=== PATIENT | female | born 1985 ===

== ENCOUNTER 2017-03-07 03:46 | Inpatient (IN) | payer OTHER ==
[2017-03-07] MEDS ORDERED: Sodium Chloride 0.9% 1,000 ML IV ONE (03:57)
[2017-03-07 04:13] LABS: SQUAMOUS EPITHIAL 4 /hpf (0-5); URINE BILIRUBIN NEGATIVE (NEGATIVE); URINE BLOOD NEGATIVE (NEGATIVE); URINE CLARITY Clear (Clear); URINE COLOR Yellow (YELLOW); URINE GLUCOSE (UA) NORMAL (Normal); URINE LEUKOCYTE ESTERASE NEG Leu/uL (Negative); URINE NITRATE NEGATIVE (NEGATIVE); URINE PROTEIN NEGATIVE (NEGATIVE); URINE UROBILINOGEN NORMAL mg/dL (0.2-1.0)
[2017-03-07 04:15] LABS: HEMOGLOBIN 11.9 g/dL (11.0-16.0)
[2017-03-07 04:18] LABS: HCG,QUALITATIVE URINE NEGATIVE (NEGATIVE)
[2017-03-07 04:19] LABS: BASO % 0.6 % (0.0-2.0); EOS % 0.5 % (0.0-4.0); LYMPH # 0.7 K/uL (1.0-4.3); LYMPH % 13.8 % (20.0-40.0); MEAN CELL VOLUME 80.4 fL (81.0-99.0); MEAN CORPUSCULAR HEMOGLOBIN 26.5 pg (27.0-31.0); MONO # 0.4 K/uL (0.0-0.8); MONO % 7.3 % (0.0-10.0); NEUT % 77.8 % (50.0-75.0); NRBC % 0.4 % (0.0-2.0); RBC 4.48 Mil/uL (3.80-5.20); RED CELL DISTRIBUTION WIDTH 16.3 % (11.5-14.5); WHITE BLOOD COUNT 5.1 K/uL (4.8-10.8)
[2017-03-07 04:28] LABS: ALB/GLOB RATIO 1.1 (1.0-2.1); ALBUMIN 4.2 g/dL (3.5-5.0); ALT/SGPT 22 U/L (9-52); AST/SGOT 30 U/L (14-36); BLOOD UREA NITROGEN 12 mg/dL (7-17); CALCIUM 8.9 mg/dl (8.6-10.4); GFR AFRICAN-AMERICAN > 60; GFR NON-AFRICAN AMERICAN > 60; LIPASE 128 U/L (23-300)
[2017-03-07] MEDS ORDERED: Iohexol 350mg/ml 100 ML ONE (04:45)
[2017-03-07] MEDS ORDERED: DiphenhydrAMINE 50 mg/ml Inj IVP STA (05:07)
[2017-03-07] MEDS ORDERED: DiphenhydrAMINE 50 mg/ml Inj ONE (05:13)
--- NOTE | 2017-03-07 06:01 | C.PDOC ---
History Of Present Illness Patient presents to ED c/o nausea/vomiting and diarrhea since tuesday. Since last night she has also been experiencing lower abdominal pain that is constant and nonradiating. She denies fever, dysuria/hematuria, vaginal bleeding/ discharge. Time Seen by Provider: 03/07/17 03:50 Chief Complaint (Nursing): Abdominal Pain History Per: Patient History/Exam Limitations: no limitations Onset/Duration Of Symptoms: Days Current Symptoms Are (Timing): Still Present Severity: Moderate Location Of Pain/Discomfort: RLQ, Suprapubic Quality Of Discomfort: "Pain" Associated Symptoms: Nausea, Vomiting, Diarrhea Past Medical History Reviewed: Historical Data, Nursing Documentation, Vital Signs Vital Signs: Last Vital Signs Temp 98.3 F 03/07/17 03:53 Pulse 91 H 03/07/17 03:53 Resp 18 03/07/17 03:53 BP 119/78 03/07/17 03:53 Pulse Ox 100 03/07/17 06:31 - Medical History PMH: No Chronic Diseases Family History: States: No Known Family Hx - Social History Hx Alcohol Use: No Hx Substance Use: No - Immunization History Hx Tetanus Toxoid Vaccination: No Hx Influenza Vaccination: No Hx Pneumococcal Vaccination: No Review Of Systems Except As Marked, All Systems Reviewed And Found Negative. Constitutional: Negative for: Fever, Chills Cardiovascular: Negative for: Chest Pain Respiratory: Negative for: Shortness of Breath Gastrointestinal: Positive for: Nausea, Vomiting, Abdominal Pain, Diarrhea Genitourinary: Negative for: Dysuria, Hematuria, Vaginal Discharge, Vaginal Bleeding Physical Exam - Physical Exam Appears: Well, Non-toxic, In Acute Distress (in mild to moderate pain ) Oral Mucosa: Moist Cardiovascular: Rhythm Regular Respiratory: Normal Breath Sounds, No Rales, No Rhonchi, No Wheezing Gastrointestinal/Abdominal: Bowel Sounds, Soft, Tenderness (mild suprapubic and RLQ TTP), No Distention, No Guarding, No Rebound Back: Normal Inspection, No CVA Tenderness Neurological/Psych: Oriented x3 ED Course And Treatment - Laboratory Results Result Diagrams: 03/07/17 04:10 03/07/17 04:10 O2 Sat by Pulse Oximetry: 100 (RA) Pulse Ox Interpretation: Normal - CT Scan/US CT ABD/PELVIS Other Rad Studies (CT/US): Read By Radiologist, Radiology Report Reviewed CT/US Interpretation: EXAM: CT Abdomen and Pelvis With Intravenous Contrast. EXAM DATE/TIME: 03/07/2017 4:38 AM. CLINICAL HISTORY: 31 years old, female; Pain; Abdominal pain; Additional info: Rlq/suprapubic pain. TECHNIQUE: Axial computed tomography images of the abdomen and pelvis with intravenous contrast. All CT. scans at this facility use one or more dose reduction techniques, viz. : automated exposure control;. ma/kV adjustment per patient size (including targeted exams where dose is matched to indication; i.e. head); or iterative reconstruction technique. Coronal and sagittal reformatted images were created and reviewed. CONTRAST: 100 mL of [id number] administered intravenously. COMPARISON: No relevant prior studies available. FINDINGS: LOWER THORAX: No infiltrate seen in the lung bases. ABDOMEN: LIVER: Fatty infiltration of the liver. [facility]. [facility]. Final Radiology Report . Name: GOKUL JOYA Age: 31Years F Date: 03/07/2017. SSN: [id number] : 1985. Study: CT ABDOMEN/PELVIS W Requesting Physician : TEMITOPE DALTON. Images: 570. Addl Studies: Provided Clinical History: rlq/suprapubic pain. CONFIDENTIALITY STATEMENT. This transmission is confidential and is intended to be a privileged communication. It is intended only for the use of the addressee. Access to this. message by anyone else is unauthorized. If you are not the intended recipient, any disclosure, copying, distribution or any action taken, or omitted to. be taken in reliance on it is prohibited and may be unlawful. If you received this communication in error, please notify us by telephone, so that return. of this document to us can be arranged. Page 2 of 3. GALLBLADDER AND BILE DUCTS: No CT evidence of acute cholecystitis. No evidence of. significant biliary ductal dilatation. PANCREAS: No CT evidence of acute pancreatitis. SPLEEN: No acute abnormality of the spleen identified. ADRENALS : No acute abnormality of the adrenal glands identified. KIDNEYS AND URETERS: No acute abnormality of the kidneys identified. No evidence of. significant hydrouereteronephrosis. STOMACH AND BOWEL: No acute abnormality of the stomach , small bowel or colon identified. No. evidence of bowel obstruction. APPENDIX : Appendix is seen, in the right anterior pelvis, inferior to the cecum, images 112-123 of. series 3. It is fluid-filled, except for a tiny dot of intraluminal air, and it is at the upper limits of normal in. size, measuring 7 mm in diameter. Its wall enhances. There is no significant adjacent inflammation or. fluid. PELVIS: BLADDER: Mild thickening of the bladder wall. REPRODUCTIVE:No acute abnormality of the reproductive organs is seen. No acute abnormality of. the uterus identified. No evidence of large adnexal masses. ABDOMEN and PELVIS: INTRAPERITONEAL SPACE: Small amount of free fluid in the cul-de-sac. This is most likely. physiologic in nature. No evidence of free air. BONES/JOINTS: No acute fractures or other acute bony abnormality noted. SOFT TISSUES: No acute abnormality of the visualized soft tissues is seen. VASCULATURE: No evidence of abdominal aortic aneurysm. No evidence of periaortic. hemorrhage. LYMPH NODES: No evidence of diffuse lymphadenopathy. [facility]. [facility]. Final Radiology Report [id number]. Name: GOKUL JOYA Age: 31Years F Date: 03/07/2017. SSN: [id number] : 1985. Study: CT ABDOMEN/PELVIS W Requesting Physician: TEMITOPE DALTON. Images: 570. Addl Studies: Provided Clinical History: rlq/suprapubic pain. CONFIDENTIALITY STATEMENT. This transmission is confidential and is intended to be a privileged communication. It is intended only for the use of the addressee. Access to this. message by anyone else is unauthorized. If you are not the intended recipient, any disclosure, copying, distribution or any action taken, or omitted to. be taken in reliance on it is prohibited and may be unlawful. If you received this communication in error, please notify us by telephone, so that return. of this document to us can be arranged. Page 3 of 3. IMPRESSION: - Appendix is fluid- filled and top normal in size. There is no adjacent inflammation. Most likely,. the findings are within normal limits. However, if there is clinical concern for early acute. appendicitis, consider a short term followup pelvic CT, to reassess the appendix. - Mild bladder wall thickening. This is a nonspecific finding, but can be seen with cystitis. Recommend clinical correlation. - Otherwise, no evidence of significant acute process. - See above for remaining findings. Thank you for allowing us to participate in the care of your patient. Dictated and Authenticated by: Gemini Wynne MD. 03/07/2017 6:10 AM Eastern Time ([place] & [place]) Progress Note: Blood work, UA, Upreg ordered and reviewed. Patient given IV NS bolus, IV zofran and IV toradol. On reassessment, patient continued to have abdominal pain. IV morphine and CT scan abd/pelvis ordered. 6:15AM- CT scan shows appendix at upper limits of normal size. Surgery resident spoken with, will come down and evaluate patient Disposition - Disposition Disposition Time: 07:00 Condition: STABLE Forms: [facility] (Uzbek) - Clinical Impression Clinical Impression: Nausea, Vomiting, Diarrhea, Abdominal pain Physician Patient Turnover Patient Signed Over To: Tarik Melendez Handoff Comments: pending surgery eval, reassessment
--- NOTE | 2017-03-07 06:11 | CT ---
EXAM: CT Abdomen and Pelvis With Intravenous Contrast EXAM DATE/TIME: 03/07/2017 4:38 AM CLINICAL HISTORY: 31 years old, female; Pain; Abdominal pain; Additional info: Rlq/suprapubic pain TECHNIQUE: Axial computed tomography images of the abdomen and pelvis with intravenous contrast. All CT scans at this facility use one or more dose reduction techniques, viz.: automated exposure control; ma/kV adjustment per patient size (including targeted exams where dose is matched to indication; i.e. head); or iterative reconstruction technique. Coronal and sagittal reformatted images were created and reviewed. CONTRAST: 100 mL of [id number] administered intravenously. COMPARISON: No relevant prior studies available. FINDINGS: LOWER THORAX: No infiltrate seen in the lung bases. ABDOMEN: LIVER: Fatty infiltration of the liver. GALLBLADDER AND BILE DUCTS: No CT evidence of acute cholecystitis. No evidence of significant biliary ductal dilatation. PANCREAS: No CT evidence of acute pancreatitis. SPLEEN: No acute abnormality of the spleen identified. ADRENALS: No acute abnormality of the adrenal glands identified. KIDNEYS AND URETERS: No acute abnormality of the kidneys identified. No evidence of significant hydrouereteronephrosis. STOMACH AND BOWEL: No acute abnormality of the stomach, small bowel or colon identified. No evidence of bowel obstruction. APPENDIX: Appendix is seen, in the right anterior pelvis, inferior to the cecum, images 112-123 of series 3. It is fluid-filled, except for a tiny dot of intraluminal air, and it is at the upper limits of normal in size, measuring 7 mm in diameter. Its wall enhances. There is no significant adjacent inflammation or fluid. PELVIS: BLADDER: Mild thickening of the bladder wall. REPRODUCTIVE:No acute abnormality of the reproductive organs is seen. No acute abnormality of the uterus identified. No evidence of large adnexal masses. ABDOMEN and PELVIS: INTRAPERITONEAL SPACE: Small amount of free fluid in the cul-de-sac. This is most likely physiologic in nature. No evidence of free air. BONES/JOINTS: No acute fractures or other acute bony abnormality noted. SOFT TISSUES: No acute abnormality of the visualized soft tissues is seen. VASCULATURE: No evidence of abdominal aortic aneurysm. No evidence of periaortic hemorrhage. LYMPH NODES: No evidence of diffuse lymphadenopathy. IMPRESSION: - Appendix is fluid-filled and top normal in size. There is no adjacent inflammation. Most likely, the findings are within normal limits. However, if there is clinical concern for early acute appendicitis, consider a short term followup pelvic CT, to reassess the appendix. - Mild bladder wall thickening. This is a nonspecific finding, but can be seen with cystitis. Recommend clinical correlation. - Otherwise, no evidence of significant acute process. - See above for remaining findings.
[2017-03-07] MEDS ORDERED: Piperacillin/Tazobact 3.375 GM in Sodium Chloride 100 ML IVPB STA (08:16)
[2017-03-07] MEDS ORDERED: Lactated Ringer's 1,000 ML ONE (09:11)
[2017-03-07] MEDS: Lactated Ringer's 1,000 ML IV SCH (09:16)
[2017-03-07 09:17] LABS: INR 1.1
--- NOTE | 2017-03-07 09:18 | RAD ---
HISTORY: preop COMPARISON: No prior. TECHNIQUE: Chest PA and lateral FINDINGS: LUNGS: No active pulmonary disease. PLEURA: No significant pleural effusion identified. No pneumothorax apparent. CARDIOVASCULAR: Normal. OSSEOUS STRUCTURES: No significant abnormalities. VISUALIZED UPPER ABDOMEN: Normal. OTHER FINDINGS: None. IMPRESSION: No active disease.
[2017-03-07] MEDS ORDERED: ceFAZolin IV 1 gm in Dextrose 0 GM/0 ML BAG IVPB ONE (10:45)
[2017-03-07] MEDS ORDERED: Bupivacaine-Epi 0.5%-1:200,000 PF Inj IJ ONE (10:46)
[2017-03-07] MEDS ORDERED: Propofol 10 mg/ml Inj (20 ML) ONE (10:55)
[2017-03-07] MEDS ORDERED: Midazolam 2 MG/2 ML VIAL ONE (10:55)
[2017-03-07] MEDS ORDERED: Rocuronium 10 mg/ml (5 ml) ONE (10:58)
[2017-03-07] MEDS ORDERED: Phenylephrine 10 mg/ml Inj ONE (10:59)
[2017-03-07] MEDS ORDERED: Lactated Ringer's 1,000 ML IV ONE ×2 (11:23→12:45)
[2017-03-07] MEDS ORDERED: Neostigmine Methylsulfate 3mg/3ml Syringe IV ONE (11:37)
--- NOTE | 2017-03-07 12:03 | CP.PCM.CON ---
Past Patient History - Past Social History Smoking Status: Never Smoked - PSYCHIATRIC Hx Substance Use: No - SURGICAL HISTORY Hx Surgeries: Yes Hx Section: Yes (x4) - ANESTHESIA Hx Anesthesia: Yes Hx Anesthesia Reactions: No Hx Malignant Hyperthermia: No Meds Allergies/Adverse Reactions: Allergies Allergy/AdvReac Type Severity Reaction Status Date / Time No Known Allergies Allergy Unverified 03/07/17 03:56 - Medications Medications: Current Medications Hydromorphone HCl (Dilaudid) 0.5 mg IVP Q3H PRN PRN Reason: Pain, severe (8-10) Lactated Ringer's (Lactated Ringer's) 1,000 mls @ 100 mls/hr IV .Q10H [facility] Last Admin: 03/07/17 09:16 Dose: 100 mls/hr Piperacillin Sod/Tazobactam Sod (Zosyn 3.375 Gm Iv Premix) 3.375 gm in 50 mls @ 100 mls/hr IVPB Q6H [facility]IAS Ondansetron HCl (Zofran Inj) 4 mg IVP Q4H PRN PRN Reason: Nausea/Vomiting Pantoprazole Sodium (Protonix Inj) 40 mg IVP DAILY [facility] Last Admin: 03/07/17 10:25 Dose: 40 mg Results - Vital Signs Recent Vital Signs: Last Vital Signs Temp 98.7 F 03/07/17 10:23 Pulse 67 03/07/17 10:23 Resp 18 03/07/17 10:23 BP 120/72 03/07/17 10:23 Pulse Ox 100 03/07/17 10:23 - Labs Result Diagrams: 03/07/17 04:10 03/07/17 04:10 Labs: Laboratory Results - last 24 hr 03/07/17 03/07/17 03/07/17 04:04 04:10 04:10 WBC 5.1 RBC 4.48 Hgb 11.9 Hct 36.0 MCV 80.4 L MCH 26.5 L MCHC 33.0 RDW 16.3 H Plt Count 234 MPV 10.0 Neut % (Auto) 77.8 H Lymph % (Auto) 13.8 L [place] % (Auto) 7.3 Eos % (Auto) 0.5 Baso % (Auto) 0.6 Neut # 4.0 Lymph # 0.7 L [place] # 0.4 Eos # 0.0 Baso # 0.0 PT INR APTT Sodium 136 Potassium 3.8 Chloride 98 Carbon Dioxide 27 Anion Gap 16 BUN 12 Creatinine 0.9 Est GFR ( Amer) > 60 Est GFR (Non-Af Amer) > 60 Random Glucose 104 Calcium 8.9 Total Bilirubin 0.7 AST 30 ALT 22 Alkaline Phosphatase 81 Total Protein 8.1 Albumin 4.2 Globulin 3.9 Albumin/Globulin Ratio 1.1 Lipase 128 Urine Color Yellow Urine Clarity Clear Urine pH 5.0 Ur Specific [place] 1.016 Urine Protein Negative Urine Glucose (UA) Normal Urine Ketones Negative Urine Blood Negative Urine Nitrate Negative Urine Bilirubin Negative Urine Urobilinogen Normal Ur Leukocyte Esterase Neg Urine WBC (Auto) 2 Urine RBC (Auto) < 1 Ur Squamous Epith Cells 4 Urine HCG, Qual Negative Blood Type Antibody Screen 03/07/17 03/07/17 09:00 09:00 WBC RBC Hgb Hct MCV MCH MCHC RDW Plt Count MPV Neut % (Auto) Lymph % (Auto) [place] % (Auto) Eos % (Auto) Baso % (Auto) Neut # Lymph # [place] # Eos # Baso # PT 13.0 H INR 1.1 APTT 29 Sodium Potassium Chloride Carbon Dioxide Anion Gap BUN Creatinine Est GFR ( Amer) Est GFR (Non-Af Amer) Random Glucose Calcium Total Bilirubin AST ALT Alkaline Phosphatase Total Protein Albumin Globulin Albumin/Globulin Ratio Lipase Urine Color Urine Clarity Urine pH Ur Specific [place] Urine Protein Urine Glucose (UA) Urine Ketones Urine Blood Urine Nitrate Urine Bilirubin Urine Urobilinogen Ur Leukocyte Esterase Urine WBC (Auto) Urine RBC (Auto) Ur Squamous Epith Cells Urine HCG, Qual Blood Type O POSITIVE Antibody Screen Negative
--- NOTE | 2017-03-07 12:05 | PCM.SURG1 ---
Surgeon's Initial Post Op Note - Surgeon's Notes Surgeon: Dr. Adams Disk And Tape Machine Tender: Evans PGY1 Type of Anesthesia: General Endo Pre-Operative Diagnosis: Acute appendicitis Operative Findings: see operative report Post-Operative Diagnosis: Acute appendicitis Operation Performed: Laparoscopic Appendectomy Specimen/Specimens Removed: Appendix Estimated Blood Loss: EBL {In ML}: 10 Blood Products Given: N/A Drains Used: No Drains Post-Op Condition: Good Date of Surgery/Procedure: 03/07/17 Time of Surgery/Procedure: 11:05
--- NOTE | 2017-03-07 14:47 | CP.PCM.HP ---
History of Present Illness - History of Present Illness History of Present Illness: History & Physical for Dr. Adams CC: RLQ abdominal pain 31 F with no significant PMH presents to [facility] for complaint of RLQ abdominal pain. Patient states that pain has been present for 2 days. She says that pain began with art home. It was a sudden onset. It began near umbilicus then migrating to RLQ. Patient has been unable to hold anything down. Any solid or liquids she consumes, comes back up. Patient reports associated non-bloody, non-bilious nausea/vomiting and non-bloody diarrhea. She rates pain as severe. She states that pain is constant and sharp located in RLQ without radiation. She states eating/drinking and certain movement exacerbates symptoms while nothing alleviates them. Denies fever/chills, chest pain, SOB, incontinence, or urinary symptoms. PMH: Denies Meds: Denies Allergy: NKDA PSH: x 4 FH: unknown Social history: denies tobacco/EtOH/illicit drug use Present on Admission - Present on Admission Any Indicators Present on Admission: No History of DVT/PE: No History of Uncontrolled Diabetes: No Urinary Catheter: No Decubitus Ulcer Present: No Review of Systems - Review of Systems All systems: reviewed and no additional remarkable complaints except (as per HPI ) Past Patient History - Past Social History Smoking Status: Never Smoked - PSYCHIATRIC Hx Substance Use: No - SURGICAL HISTORY Hx Surgeries: Yes Hx Section: Yes (x4) - ANESTHESIA Hx Anesthesia: Yes Hx Anesthesia Reactions: No Hx Malignant Hyperthermia: No Meds Allergies/Adverse Reactions: Allergies Allergy/AdvReac Type Severity Reaction Status Date / Time No Known Allergies Allergy Unverified 03/07/17 03:56 Physical Exam - Constitutional Appears: Well, No Acute Distress - Head Exam Head Exam: ATRAUMATIC, NORMOCEPHALIC - Eye Exam Eye Exam: EOMI, Normal appearance Pupil Exam: PERRL - ENT Exam ENT Exam: Mucous Membranes Moist - Respiratory Exam Respiratory Exam: NORMAL BREATHING PATTERN - Cardiovascular Exam Cardiovascular Exam: REGULAR RHYTHM - GI/Abdominal Exam GI & Abdominal Exam: Soft, Tenderness (RLQ). absent: Distended, Firm, Guarding , Rebound, Rigid - Extremities Exam Extremities exam: Positive for: normal capillary refill, pedal pulses present - Back Exam Back exam: absent: CVA tenderness (L), CVA tenderness (R) - Neurological Exam Neurological exam: Alert, CN II-XII Intact, Oriented x3 - Psychiatric Exam Psychiatric exam: Normal Affect, Normal Mood - Skin Skin Exam: Dry, Intact, Normal Color, Warm Results - Vital Signs Recent Vital Signs: Last Vital Signs Temp 97.8 F 03/07/17 12:02 Pulse 57 L 03/07/17 13:30 Resp 10 L 03/07/17 13:30 BP 114/69 03/07/17 13:30 Pulse Ox 97 03/07/17 13:30 - Labs Result Diagrams: 03/07/17 04:10 03/07/17 04:10 Labs: Laboratory Results - last 24 hr 03/07/17 03/07/17 03/07/17 04:04 04:10 04:10 WBC 5.1 RBC 4.48 Hgb 11.9 Hct 36.0 MCV 80.4 L MCH 26.5 L MCHC 33.0 RDW 16.3 H Plt Count 234 MPV 10.0 Neut % (Auto) 77.8 H Lymph % (Auto) 13.8 L [place] % (Auto) 7.3 Eos % (Auto) 0.5 Baso % (Auto) 0.6 Neut # 4.0 Lymph # 0.7 L [place] # 0.4 Eos # 0.0 Baso # 0.0 PT INR APTT Sodium 136 Potassium 3.8 Chloride 98 Carbon Dioxide 27 Anion Gap 16 BUN 12 Creatinine 0.9 Est GFR ( Amer) > 60 Est GFR (Non-Af Amer) > 60 Random Glucose 104 Calcium 8.9 Total Bilirubin 0.7 AST 30 ALT 22 Alkaline Phosphatase 81 Total Protein 8.1 Albumin 4.2 Globulin 3.9 Albumin/Globulin Ratio 1.1 Lipase 128 Urine Color Yellow Urine Clarity Clear Urine pH 5.0 Ur Specific [place] 1.016 Urine Protein Negative Urine Glucose (UA) Normal Urine Ketones Negative Urine Blood Negative Urine Nitrate Negative Urine Bilirubin Negative Urine Urobilinogen Normal Ur Leukocyte Esterase Neg Urine WBC (Auto) 2 Urine RBC (Auto) < 1 Ur Squamous Epith Cells 4 Urine HCG, Qual Negative Blood Type Antibody Screen 03/07/17 03/07/17 09:00 09:00 WBC RBC Hgb Hct MCV MCH MCHC RDW Plt Count MPV Neut % (Auto) Lymph % (Auto) [place] % (Auto) Eos % (Auto) Baso % (Auto) Neut # Lymph # [place] # Eos # Baso # PT 13.0 H INR 1.1 APTT 29 Sodium Potassium Chloride Carbon Dioxide Anion Gap BUN Creatinine Est GFR ( Amer) Est GFR (Non-Af Amer) Random Glucose Calcium Total Bilirubin AST ALT Alkaline Phosphatase Total Protein Albumin Globulin Albumin/Globulin Ratio Lipase Urine Color Urine Clarity Urine pH Ur Specific [place] Urine Protein Urine Glucose (UA) Urine Ketones Urine Blood Urine Nitrate Urine Bilirubin Urine Urobilinogen Ur Leukocyte Esterase Urine WBC (Auto) Urine RBC (Auto) Ur Squamous Epith Cells Urine HCG, Qual Blood Type O POSITIVE Antibody Screen Negative Assessment & Plan - Assessment and Plan (Free Text) Plan: 31 F with acute appendicitis -NPO -IV antibiotics -IV fluids -Analgesics/Anti-emetics PRN -OR today at 11 am for laparoscopic appendectomy -Discussed with Dr. Angie Krueger PGY1
[2017-03-07] MEDS: Piperacill/Tazo 3.375gm in Dex 3.375 GM/50 ML BAG IVPB SCH ×2 (16:00→20:21)
--- NOTE | 2017-03-07 21:12 | OP ---
PROCEDURE DATE: 03/07/2017 PREOPERATIVE DIAGNOSIS: Acute appendicitis. POSTOPERATIVE DIAGNOSIS: Acute appendicitis. PROCEDURE PERFORMED: Laparoscopic appendectomy. FINDINGS: Appendix was markedly swollen. There is no gross perforation noted. There are no adhesions noted in the peritoneal cavity as expected. No other pathology noted. DESCRIPTION OF PROCEDURE: Under general anesthesia, the patient was prepared and draped in the usual sterile fashion. A Veress needle was inserted in the midepigastric area through which CO2 was insufflated to about 15 mmHg pressure. Because of fear of adhesions in the lower abdomen, a 5 mm trocar was inserted in the left lower quadrant under direct vision with the scope. No adhesions were seen. A 12 mm trocar was inserted in the umbilical area and another 5 mm in the suprapubic area. Through these ports, the appendix was identified. The base was then transected with AutoSuture model Endo SERGO with blue regan and the mesoappendix was transected with the white regan. The base of the appendix was placed in the EndoCatch and was extracted through the umbilical port. The area was irrigated with large amount of saline solution, irrigating fluid suctioned out. Then, CO2 was allowed to escape from the peritoneal cavity, trocars removed, and the wound was closed in a routine fashion. Estimated blood loss was about 10 mL. No complications. There was no bleeding noted in the stump or in the staple line after irrigation. Jose Adams MD
[2017-03-08] MEDS: Piperacill/Tazo 3.375gm in Dex 3.375 GM/50 ML BAG IVPB SCH ×2 (02:13→08:51)
[2017-03-08 02:25] VITALS: RESP 20
[2017-03-08] MEDS: Lactated Ringer's 1,000 ML IV SCH ×2 (04:30→08:52)
[2017-03-08 07:14] LABS: BASO % 0.5 % (0.0-2.0); EOS # 0.1 K/uL (0.0-0.7); EOS % 1.4 % (0.0-4.0); HEMOGLOBIN 9.4 g/dL (11.0-16.0); LYMPH # 1.4 K/uL (1.0-4.3); LYMPH % 29.5 % (20.0-40.0); MEAN CELL VOLUME 81.2 fL (81.0-99.0); MEAN CORPUSCULAR HEMOGLOBIN 26.7 pg (27.0-31.0); MEAN CORPUSCULAR HGB CONC 32.9 g/dL (33.0-37.0); MEAN PLATELET VOLUME 10.3 fL (7.2-11.7); MONO # 0.5 K/uL (0.0-0.8); MONO % 10.2 % (0.0-10.0); NEUT # 2.7 K/uL (1.8-7.0); NEUT % 58.4 % (50.0-75.0); NRBC % 0.1 % (0.0-2.0); RBC 3.53 Mil/uL (3.80-5.20); RED CELL DISTRIBUTION WIDTH 16.6 % (11.5-14.5); WHITE BLOOD COUNT 4.6 K/uL (4.8-10.8)
[2017-03-08 07:18] LABS: ALB/GLOB RATIO 1.1 (1.0-2.1); ALBUMIN 2.9 g/dL (3.5-5.0); ALT/SGPT 22 U/L (9-52); AST/SGOT 22 U/L (14-36); BLOOD UREA NITROGEN 7 mg/dL (7-17); CALCIUM 7.8 mg/dl (8.6-10.4); GFR AFRICAN-AMERICAN > 60; GFR NON-AFRICAN AMERICAN > 60
[2017-03-08 08:24] VITALS: BP 93/57; PULSE 73; TEMP 98.7; O2SAT 98
[2017-03-08] MEDS ORDERED: Oxycodone/Acetaminophen 5/325 mg Tab PO PRN (08:26)
--- NOTE | 2017-03-08 08:36 | CP.PCM.DIS ---
Provider - Provider Date of Admission: 03/07/17 08:16 Attending physician: Jose Adams MD Primary care physician: Angie Time Spent in preparation of Discharge (in minutes): 45 Hospital Course - Lab Results Lab Results: Most Recent Lab Values WBC 4.6 K/uL (4.8-10.8) L 03/08/17 06:36 RBC 3.53 Mil/uL (3.80-5.20) L 03/08/17 06:36 Hgb 9.4 g/dL (11.0-16.0) L D 03/08/17 06:36 Hct 28.7 % (34.0-47.0) L 03/08/17 06:36 MCV 81.2 fL (81.0-99.0) 03/08/17 06:36 MCH 26.7 pg (27.0-31.0) L 03/08/17 06:36 MCHC 32.9 g/dL (33.0-37.0) L 03/08/17 06:36 RDW 16.6 % (11.5-14.5) H 03/08/17 06:36 Plt Count 184 K/uL (130-400) 03/08/17 06:36 MPV 10.3 fL (7.2-11.7) 03/08/17 06:36 Neut % (Auto) 58.4 % (50.0-75.0) 03/08/17 06:36 Lymph % (Auto) 29.5 % (20.0-40.0) 03/08/17 06:36 [place] % (Auto) 10.2 % (0.0-10.0) H 03/08/17 06:36 Eos % (Auto) 1.4 % (0.0-4.0) 03/08/17 06:36 Baso % (Auto) 0.5 % (0.0-2.0) 03/08/17 06:36 Neut # 2.7 K/uL (1.8-7.0) 03/08/17 06:36 Lymph # 1.4 K/uL (1.0-4.3) 03/08/17 06:36 [place] # 0.5 K/uL (0.0-0.8) 03/08/17 06:36 Eos # 0.1 K/uL (0.0-0.7) 03/08/17 06:36 Baso # 0.0 K/uL (0.0-0.2) 03/08/17 06:36 PT 13.0 SECONDS (9.7-12.2) H 03/07/17 09:00 INR 1.1 03/07/17 09:00 APTT 29 SECONDS (21-34) 03/07/17 09:00 Sodium 133 mmol/L (132-148) 03/08/17 06:36 Potassium 3.7 mmol/L (3.6-5.2) 03/08/17 06:36 Chloride 100 mmol/L (98-107) 03/08/17 06:36 Carbon Dioxide 26 mmol/L (22-30) 03/08/17 06:36 Anion Gap 10 (10-20) 03/08/17 06:36 BUN 7 mg/dL (7-17) 03/08/17 06:36 Creatinine 0.9 mg/dL (0.7-1.2) 03/08/17 06:36 Est GFR ( Amer) > 60 03/08/17 06:36 Est GFR (Non-Af Amer) > 60 03/08/17 06:36 Random Glucose 77 mg/dL (65-105) 03/08/17 06:36 Calcium 7.8 mg/dl (8.6-10.4) L 03/08/17 06:36 Total Bilirubin 0.5 mg/dL (0.2-1.3) 03/08/17 06:36 AST 22 U/L (14-36) 03/08/17 06:36 ALT 22 U/L (9-52) 03/08/17 06:36 Alkaline Phosphatase 54 U/L (38-126) 03/08/17 06:36 Total Protein 5.5 g/dL (6.3-8.3) L 03/08/17 06:36 Albumin 2.9 g/dL (3.5-5.0) L D 03/08/17 06:36 Globulin 2.6 gm/dL (2.2-3.9) 03/08/17 06:36 Albumin/Globulin Ratio 1.1 (1.0-2.1) 03/08/17 06:36 Lipase 128 U/L (23-300) 03/07/17 04:10 Urine Color Yellow (YELLOW) 03/07/17 04:04 Urine Clarity Clear (Clear) 03/07/17 04:04 Urine pH 5.0 (5.0-8.0) 03/07/17 04:04 Ur Specific [place] 1.016 (1.003-1.030) 03/07/17 04:04 Urine Protein Negative mg/dL (NEGATIVE) 03/07/17 04:04 Urine Glucose (UA) Normal mg/dL (Normal) 03/07/17 04:04 Urine Ketones Negative mg/dL (NEGATIVE) 03/07/17 04:04 Urine Blood Negative (NEGATIVE) 03/07/17 04:04 Urine Nitrate Negative (NEGATIVE) 03/07/17 04:04 Urine Bilirubin Negative (NEGATIVE) 03/07/17 04:04 Urine Urobilinogen Normal mg/dL (0.2-1.0) 03/07/17 04:04 Ur Leukocyte Esterase Neg [place]/uL (Negative) 03/07/17 04:04 Urine WBC (Auto) 2 /hpf (0-5) 03/07/17 04:04 Urine RBC (Auto) < 1 /hpf (0-3) 03/07/17 04:04 Ur Squamous Epith Cells 4 /hpf (0-5) 03/07/17 04:04 Urine HCG, Qual Negative (NEGATIVE) 03/07/17 04:04 Blood Type O POSITIVE 03/07/17 09:00 Antibody Screen Negative 03/07/17 09:00 - Hospital Course Hospital Course: Pt came with RLQ pain and N/V. CT found to have appendicitis. Pt was taken to OR for lap appy. TOlerated it well. Following day, pain tolerated. Tolerated diet. Pt is cleared to go home. VSS. Labs wnl. Pt insturcted to follow up at Dr. Adams's office in 1-2 weeks. Ok to take shower tomorrow Take Bandaid off when shower Keep glue or white strips on until falls off naturally NO heavy lifting for 1 month OK to return to work next week Take pain med as needed. Take stool softer for constipation Understood and agreed. Discharge Exam - Head Exam Head Exam: ATRAUMATIC, NORMOCEPHALIC - Eye Exam Eye Exam: EOMI, Normal appearance, PERRL Pupil Exam: NORMAL ACCOMODATION, PERRL - Neck Exam Neck exam: Normal Inspection - Respiratory Exam Respiratory Exam: NORMAL BREATHING PATTERN, UNREMARKABLE - Cardiovascular Exam Cardiovascular Exam: REGULAR RHYTHM - GI/Abdominal Exam GI & Abdominal Exam: Normal Bowel Sounds, Soft, Tenderness. absent: Distended, Firm, Guarding, Hernia, Rigid - Exam Exam: NORMAL INSPECTION - Extremities Exam Extremities exam: full ROM - Neurological Exam Neurological exam: Alert, CN II-XII Intact, Normal Gait, Oriented x3, Reflexes Normal - Psychiatric Exam Psychiatric exam: Normal Affect, Normal Mood - Skin Skin Exam: Dry, Intact, Normal Color, Warm Discharge Plan - Discharge Medications Prescriptions: Docusate Sodium [Colace] 100 mg PO DAILY #10 capsule oxyCODONE/Acetaminophen [Percocet 5/325 mg Tab] 2 tab PO Q4H PRN #30 tab PRN Reason: Pain, Moderate (4-7) - Follow Up Plan Condition: STABLE Disposition: HOME/ ROUTINE Instructions: Laparoscopic Appendectomy (DC) Additional Instructions: follow up at Dr. Adams's office in 1-2 weeks. Ok to take shower tomorrow Take Bandaid off when shower Keep glue or white strips on until falls off naturally NO heavy lifting for 1 month OK to return to work next week Take pain med as needed. Take stool softer for constipation Referrals: Jose Adams MD [Staff Provider] -
--- NOTE | 2017-03-08 23:14 | CARD ---
APPROVED REPORT EKG Measurement Heart [id number] MD [id number] <Conclusion> Normal sinus rhythm Normal ECG
== END 2017-03-08 11:02 | disposition home or self-care (01) | DRG 883 ==
LOC: C.ER 03:46 → C.9E 08:16 → C.6T 18:36
PROVIDERS: ADMIT Surgery; ATTEND Surgery
PROC: 0DTJ4ZZ Resection of Appendix, Percutaneous Endoscopic Approach (ICD-10-PCS; principal; 2017-03-07 11:30)
DX: K35.80 Unspecified acute appendicitis (principal); K59.00 Constipation, unspecified